=== PATIENT | female | born 1960 | race Caucasian/White ===

== ENCOUNTER 2016-10-28 04:51 | Emergency (ER) ==
[2016-10-28 05:04] VITALS: BP 117/76
[2016-10-28] MEDS ORDERED: FLEXERIL PO ONE (05:17)
[2016-10-28] MEDS ORDERED: TYLENOL WITH CODEINE #3 PO ONE (05:17)
--- NOTE | 2016-10-28 05:21 | PROVIDER DOCUMENTATION ---
HPI-Musculoskeletal Pain/Inj - GENERAL Chief Complaint: Neck Pain Stated Complaint: NECK PAIN Time Seen by Provider: 10/28/16 05:10 Source: patient - HX OF PRESENT ILLNESS-MUSKULOSKELTAL Nature of Presenting Problem: pt states 3-4 month hx of neck without known injury. The paun radiates towards her left shoulder. She denies numbness or tingling. She has been taking motrin 800mg TID without relief. She states it has kept her from sleeping tonight. She denies seeing anybody in the last few months about this Review of Systems - Adult - REVIEW OF SYSTEMS - ADULT Constitutional: denies: chills, fever Eyes: denies: discharge Ears, Nose, Mouth & Throat: denies: ear pain, sinus problem, throat pain Cardiovascular: denies: chest pain Respiratory: denies: cough, shortness of breath Gastrointestinal: denies: abdominal pain, hematemesis, diarrhea, nausea, rectal bleeding, vomiting Musculoskeletal: reports: see HPI Integumentary: denies: rash Neurological: denies: headache/migraines, numbness, paresthesia All Other Systems: Reviewed and Negative Past History - Adult - PAST MEDICAL HISTORY-ADULT Review of Records: reports: Old Records Reviewed, Nursing Assessment Review, Medications Reviewed, Social history reviewed & non-contributory. Major Childhood Illnesses: reports: denies history Cardiovascular: reports: HTN Musculoskeletal: reports: osteoporosis - PRIOR SURGERIES/PROCEDURES Surgical/Procedure History: reports: hysterectomy, orthopedic (extremity) - IMMUNIZATION STATUS Childhood Immunizations: See Nurse Assessment Flu Vaccine: See Nurse Assessment Physical Exam-Injury Related - Physical Exam-Injury Related Initial Vital Signs Reviewed: Yes General Appearance: appears well, alert, no apparent distress Head, Ears, Nose, Mouth & Throat: normocephalic/atraumatic Neck: non-tender, full range of motion, supple, normal inspection Peripheral Pulses: radial (R): 3+, radial (L): 3+ Extremity: normal range of motion Integumentary: normal color, warm/dry, blanching Neurologic: grossly normal, no motor/sensory deficits Psych/Mental Status: normal mood/affect, normal thought content, normal thought process, oriented x 3 Progress - PLAN OF CARE/RESULTS Progress/Plan/Lab Results: Orders Category Date Time Status Acetaminophen with Codeine [Tylenol with Codeine #3] Med 10/28/16 05:17 Discontinued 1 each PO NOW ONE Cyclobenzaprine [Flexeril] Med 10/28/16 05:17 Discontinued 10 mg PO NOW ONE Vital Signs Temp Pulse Resp BP Pulse Ox 10/28/16 04:59 97.7 F 80 18 117/76 96 tuberculin,PPD,multi-puncture Allergy (Severe, Verified 10/28/16 05:04) SWELLING TB SKIN TEST meperidine HCl * [From Demerol] Allergy (Verified 10/28/16 05:04) Unknown Carvedilol [Coreg] 6.25 mg PO BID 10/28/16 - REASSESSMENT Reassessment #1 Time Reassessed: 05:20 (rec she follow up with her PCP, Dr Dietrich for MRI) Status: unchanged Departure - Departure Time of Disposition Order: 05:20 DIAGNOSIS: Chronic neck pain Disposition: HOME 01 Certified Medical Emergency: Emergent Condition: Good Additional Instructions: ED Follow Up Instructions: You have been treated by a care provider in the Emergency Department. These instructions are being provided to you so you can have an understanding of how to care for yourself upon discharge. Upon discharge from the Emergency Department, you are responsible for making arrangements for follow-up care by a physician of your choice. Take all prescribed medications as directed. Return to the Emergency Department immediately for any new or worsening symptoms. You may call the Physician Referral phone number at [phone] to obtain a list of Physicians who are taking new patients. Prescriptions: Cyclobenzaprine [Flexeril] 10 mg PO TID PRN #20 tablet PRN Reason: Spasms Meloxicam [Mobic] 15 mg PO DAILY PRN #30 tablet PRN Reason: Pain Acetaminophen with Codeine [Tylenol with Codeine #3] 1 each PO Q4H PRN PRN #20 tablet PRN Reason: Pain
== END 2016-10-28 05:28 | disposition home or self-care (01) ==
LOC: P.ED 04:51
DX: G89.29 Other chronic pain (principal); M54.2 Cervicalgia; M25.512 Pain in left shoulder; I10 Essential (primary) hypertension; M81.0 Age-related osteoporosis without current pathological fracture; Z79.899 Other long term (current) drug therapy
CPT/HCPCS: 99282